=== PATIENT | male | born 1970 | race Caucasian/White ===

== ENCOUNTER 2016-08-17 21:36 | Emergency (ER) | payer OTHER ==
[2016-08-17 22:02] VITALS: BP 122/71; PULSE 72; RESP 16; TEMP 98.2; O2SAT 94
[2016-08-17] MEDS ORDERED: LETS SOLN TOPICAL 1 EA SYR TP ONE (22:07)
--- NOTE | 2016-08-17 22:57 | UCPHY ---
H & P Time Seen by Provider: 08/17/16 21:55 Patient Type: Established HPI/ROS: 45-year-old male presents complaining of laceration to his left eyebrow states he tripped hitting his night stand. No loss of consciousness, no nausea no vomiting. Review of systems As per HPI General no fever no chills no weakness HEENT no eye pain no eye discharge. No eye redness, no sore throat Respiratory no cough, no shortness of breath Cardiac no chest pain, no peripheral edema GI no abdominal pain, no diarrhea, no constipation, no nausea, no vomiting no flank pain, no hematuria, no dysuria Musculoskeletal no myalgias, no joint pain Heme no easy bruising, no easy bleeding Endo no polyuria, no polydipsia Skin no rashes, no pruritus Neuro no syncope, no dizziness, no headaches Psych is no suicidal ideation, no homicidal ideation Past Medical/Surgical History: Anxiety Social History: Denies drug use Works full-time doing tax work Smoking Status: Current every day smoker Physical Exam: 45-year-old male alert and oriented no acute distress nontoxic appearance afebrile Normocephalic 1.5 cm laceration just lateral to the left eyebrow through the dermis HEENT normocephalic, extraocular muscles intact, anicteric Oropharynx negative for erythema negative exudate, tolerating her own secretions Neck supple no meningismus Lungs clear to auscultation bilaterally Heart regular rate and rhythm without murmur rub or gallop Abdomen nondistended normoactive bowel sounds soft nontender Back no CVA tenderness, no step-offs, no spinal tenderness Extremities no cyanosis clubbing or edema Neuro alert and oriented, no focal deficits Constitutional: Initial Vital Signs Temperature (C) 36.8 C 08/17/16 22:01 Heart Rate 72 08/17/16 22:01 Respiratory Rate 16 08/17/16 22:01 Blood Pressure 122/71 H 08/17/16 22:01 O2 Sat (%) 94 08/17/16 22:01 O2 Delivery Mode Room Air Allergies/Adverse Reactions: diazepam [From Valium] Allergy (Verified 08/17/16 22:00) gabapentin [From Neurontin] Allergy (Verified 08/17/16 22:00) Home Medications: Medication Instructions Recorded LORazepam [Ativan] 0.5 mg PO Q6 #10 tab 10/06/15 oxyCODONE HCL/ACETAMINOPHEN 10/06/15 [Percocet 10-325 mg Tablet] Medical Decision Making Procedures: Procedure note-laceration The wound was irrigated with copious amounts of saline. Lidocaine 1% was used for local anesthetic. Five simple interrupted sutures were placed. 5-0 Ethilon was used. Patient tolerated procedure well. ED Course/Re-evaluation: Patient seen and evaluated for left eyebrow laceration Impression Facial laceration, 1.5 cm Plan Sutured repair Patient states tetanus is up-to-date Return in 6 days for suture removal Departure - Departure Disposition: Home, Routine, Self-Care Clinical Impression: Facial laceration Condition: Good Instructions: Facial Laceration (ED) Additional Instructions: Return for suture removal in 6-8 days Referrals: SAIMA MORENO [Primary Care Provider] - As per Instructions Stand Alone Forms: Work Excuse - PQRS PQRS Measurement: na
== END 2016-08-17 23:09 | disposition home or self-care (01) ==
LOC: CED 21:36
PROC: 0HQ1XZZ Repair Face Skin, External Approach (ICD-10-PCS; principal; 2016-08-17)
DX: S01.81XA Laceration without foreign body of other part of head, initial encounter (principal); W01.190A Fall on same level from slipping, tripping and stumbling with subsequent striking against furniture, initial encounter; Y92.013 Bedroom of single-family (private) house as the place of occurrence of the external cause; Y99.8 Other external cause status; F17.200 Nicotine dependence, unspecified, uncomplicated
CPT/HCPCS: 12011-PO; 99213-PO; G0463-PO

== ENCOUNTER → 2017-01-18 | Outpatient (CLI) | payer OTHER | LOC: BRMIMAGING 15:45 | PROVIDERS: ATTEND Family Medicine | DX: I80.8 Phlebitis and thrombophlebitis of other sites (principal) | CPT/HCPCS: 93971-PO ==